=== PATIENT | female | born 1995 | race African-American/Black ===

== ENCOUNTER 2017-04-04 05:43 | Emergency (ER) | payer MEDICAID, OTHER ==
[~2017-04-04] VITALS: Ht 154.9 cm; Wt 100.0 kg
[~2017-04-04 05:43] MED LIST: ALBU6.7H INH; CETI10 PO; ZITHTAB PO
[2017-04-04 05:44] VITALS: BP 145/79; PULSE 104; RESP 16; TEMP 97.7; O2SAT 96
[2017-04-04] MEDS ORDERED: diphenhydrAMINE HCL 50 MG/ML VIAL IV PUSH ONE (06:30)
[2017-04-04] MEDS ORDERED: SODIUM CHLOR 0.9% 1000 ML INJ 1,000 ML IV ONE (06:30)
[2017-04-04] MEDS ORDERED: METOCLOPRAMIDE INJ 10 MG in SODIUM CHLORIDE 0.9% INJ 50 ML IV ONE (06:30)
--- NOTE | 2017-04-04 07:12 | PD ---
HPI Chief Complaint: Headache Time Seen by Provider: 06:21 Travel History International Travel<30 days: No Contact w/Intl Traveler<30days: No Traveled to known affect area: No History of Present Illness HPI 22yo F with no significant PMH who is 12 weeks presents to the ED with headache since 3pm yesterday. Pain is more from neck up to occiput. Associated with photophobia. Denies any fever, chest pain, sob, n/v, abdominal pain, vaginal bleeding or discharge, urinary complaints. PFSH Past Medical History Medical History: Denies Significant Hx Immunizations Current: Yes Tetanus Vaccination: > 5 Years Influenza Vaccination: No ?: Not LMP: CURRENTLY 12 WEEKS : 2 Para: 1 Past Surgical History Section: Yes Tonsillectomy: Yes Social History Alcohol Use: No Tobacco Use: No Substance Use: No Allergies-Medications (Allergen,Severity, Reaction): Coded Allergies: No Known Allergies (Verified Adverse Reaction, Unknown, 04/04/17) Reported Meds & Prescriptions Reported Meds & Active Scripts Active No Active Prescriptions or Reported Medications Review of Systems Except as stated in HPI: all other systems reviewed are Neg Physical Exam Narrative GENERAL: 22yo F in mild distress. SKIN: Focused skin assessment warm/dry. HEAD: Atraumatic. Normocephalic. EYES: Pupils equal and round at 4mm bilaterally. EOMI. ENT: No nasal bleeding or discharge. Mucous membranes pink and moist. NECK: Trachea midline. No JVD. CARDIOVASCULAR: Regular rate and rhythm. No murmur appreciated. RESPIRATORY: No accessory muscle use. Clear to auscultation. Breath sounds equal bilaterally. GASTROINTESTINAL: Abdomen soft, non-tender, nondistended. MUSCULOSKELETAL: No obvious deformities. No clubbing. No cyanosis. No edema. NEUROLOGICAL: Awake and alert. No obvious cranial nerve deficits. Motor grossly within normal limits. Normal speech. PSYCHIATRIC: Appropriate mood and affect; insight and judgment normal. Data Data Last Documented VS Vital Signs Date Time Temp Pulse Resp B/P (MAP) Pulse Ox O2 Delivery O2 Flow Rate FiO2 04/04/17 08:16 04/04/17 06:40 99 Room Air 04/04/17 05:44 97.7 104 16 Orders Orders Sodium Chlor 0.9% 1000 Ml Inj (Ns 1000 M (04/04/17 06:30) Metoclopramide Inj (Reglan Inj) (04/04/17 06:30) Diphenhydramine Inj (Benadryl Inj) (04/04/17 06:30) Ed Discharge Order (04/04/17 08:09) [facility] Medical Decision Making Medical Screen Exam Complete: Yes Emergency Medical Condition: Yes Differential Diagnosis Migraine headache vs. tension headache vs. cluster headache Narrative Course 22yo well appearing female here with headache since yesterday. No red flags. Pt given NS IVF, reglan, and diphenhydramine IV. Pt seen at the end of my shift. Will sign out to next team to reevaluate. Diagnosis Primary Impression: Headache Qualified Codes: R51 - Headache Scripts No Active Prescriptions or Reported Meds Carleen Otoole DO Apr 04, 2017 07:12
--- NOTE | 2017-04-04 08:09 | PD ---
Physical Exam Narrative Patient signed out to me by Dr. Otoole. Please see her documentation for complete details. Exam shows no neurologic abnormalities. Heart is RRR, Lungs CTA. Data Data Last Documented VS Vital Signs Date Time Temp Pulse Resp B/P (MAP) Pulse Ox O2 Delivery O2 Flow Rate FiO2 04/04/17 06:40 99 Room Air 04/04/17 05:44 97.7 104 16 145/79 (101) Orders Orders Sodium Chlor 0.9% 1000 Ml Inj (Ns 1000 M (04/04/17 06:30) Metoclopramide Inj (Reglan Inj) (04/04/17 06:30) Diphenhydramine Inj (Benadryl Inj) (04/04/17 06:30) MDM Supervised Visit with STEPHANIE: No Narrative Course Patient was given IVF, Reglan, Benadryl. She reports resolution of her symptoms. She is advised to drink plenty of fluids. Take Tylenol as needed for pain and Benadryl if needed. Advised to follow up with her doctor. Advised to return to the ED at any time for any worsening symptoms. Diagnosis Primary Impression: Headache Qualified Codes: R51 - Headache Patient Instructions: Acute Headache (ED), General Instructions Additional Instruction: Drink plenty of fluids. Take Tylenol as needed for pain. Follow up with your doctor. Return to the ED as needed for any worsening symptoms. Scripts No Active Prescriptions or Reported Meds Disposition: 01 DISCHARGE HOME Condition: Stable Marisel Wynn MD Apr 04, 2017 08:09
== END 2017-04-04 08:20 | disposition home or self-care (01) ==
LOC: NEPE 05:43
DX: O26.891 Other specified pregnancy related conditions, first trimester (principal); R51 Headache; Z3A.12 12 weeks gestation of pregnancy
CPT/HCPCS: 96365; 96375; 99284; J1200; J2765; J7030

== ENCOUNTER → 2017-05-13 | Outpatient (CLI) | payer MEDICAID | LOC: HPND 10:09 | PROVIDERS: ATTEND Obstetrics & Gynecology | DX: O28.3 Abnormal ultrasonic finding on antenatal screening of mother (principal); O99.212 Obesity complicating pregnancy, second trimester; E66.01 Morbid (severe) obesity due to excess calories; O28.5 Abnormal chromosomal and genetic finding on antenatal screening of mother; O35.1XX0 Maternal care for (suspected) chromosomal abnormality in fetus, not applicable or unspecified; Z68.41 Body mass index [BMI] 40.0-44.9, adult | CPT/HCPCS: 76811 ==

== ENCOUNTER → 2017-06-10 | Outpatient (CLI) | payer MEDICAID ==
--- NOTE | 2017-06-10 16:46 | EKG ---
Date Performed: 06/10/2017 Time Performed: 10:04:38 PTAGE: 22 years EKG: Sinus rhythm . Normal ECG NO PREVIOUS TRACING DOCTOR: Tiffanie Nj Interpretating Date/Time 06/10/2017 16:43:53
== END ==
LOC: HCAV 09:56
PROVIDERS: ATTEND Obstetrics & Gynecology
DX: O99.212 Obesity complicating pregnancy, second trimester (principal)
CPT/HCPCS: 93005

== ENCOUNTER → 2017-06-18 | Outpatient (CLI) | payer MEDICAID | LOC: HPND 09:26 | PROVIDERS: ATTEND Obstetrics & Gynecology | DX: O99.212 Obesity complicating pregnancy, second trimester (principal); E66.01 Morbid (severe) obesity due to excess calories; Z68.41 Body mass index [BMI] 40.0-44.9, adult; O28.5 Abnormal chromosomal and genetic finding on antenatal screening of mother; O35.1XX0 Maternal care for (suspected) chromosomal abnormality in fetus, not applicable or unspecified | CPT/HCPCS: 76816 ==

== ENCOUNTER → 2017-07-16 | Outpatient (CLI) | payer MEDICAID | LOC: HPND 09:36 | PROVIDERS: ATTEND Obstetrics & Gynecology | DX: O99.212 Obesity complicating pregnancy, second trimester (principal); E66.01 Morbid (severe) obesity due to excess calories; Z68.41 Body mass index [BMI] 40.0-44.9, adult; O35.1XX0 Maternal care for (suspected) chromosomal abnormality in fetus, not applicable or unspecified; O28.5 Abnormal chromosomal and genetic finding on antenatal screening of mother | CPT/HCPCS: 76816 ==

== ENCOUNTER → 2017-08-13 | Outpatient (CLI) | payer MEDICAID | LOC: HPND 09:42 | PROVIDERS: ATTEND Obstetrics & Gynecology | DX: O28.5 Abnormal chromosomal and genetic finding on antenatal screening of mother (principal); O99.213 Obesity complicating pregnancy, third trimester; E66.01 Morbid (severe) obesity due to excess calories; Z68.41 Body mass index [BMI] 40.0-44.9, adult | CPT/HCPCS: 76816 ==

== ENCOUNTER 2017-10-06 11:20 | Inpatient (IN) ==
[2017-10-06] MEDS ORDERED: Lidocaine 2%/Epinephrine 1:200,000 PF Inj 20 ML Vial INFILTRATN ONE (12:00)
[2017-10-06] MEDS ORDERED: Phenylephrine/NS 1000 MCG/10ML Syringe IV.PUSH ONE (12:00)
[2017-10-06] MEDS ORDERED: Citric Acid/Sodium Citrate Liq 30 ML UDC PO SCH (12:15)
[2017-10-06 12:39] LABS: Baso # (Auto) 0.1 th/mm3 (0.0-0.2); Baso % (Auto) 0.5 % (0.0-2.0); Eos # (Auto) 0.1 th/mm3 (0.0-0.4); Eos % (Auto) 0.8 % (0.0-4.0); Hematocrit 34.1 % (35.0-46.0); Hemoglobin 11.5 gm/dL (11.6-15.3); Lymph # (Auto) 1.7 th/mm3 (1.0-4.8); Lymph % (Auto) 18.1 % (9.0-44.0); Mean Corpuscular HGB Conc 33.7 % (32.0-36.0); Mean Corpuscular Volume 80.4 fL (80.0-100.0); Mono # (Auto) 0.3 th/mm3 (0.0-0.9); Mono % (Auto) 3.7 % (0.0-8.0); Neut # (Auto) 7.2 th/mm3 (1.8-7.7); Neut % (Auto) 76.9 % (16.0-70.0); Platelet Count 283 th/mm3 (150-450); Red Blood Count 4.24 mil/mm3 (4.00-5.30); Red Cell Distribution Width 15.8 % (11.6-17.2); White Blood Count 9.4 th/mm3 (4.0-11.0)
--- NOTE | 2017-10-06 12:52 | P.HP ---
History of Present Illness Primary Care Physician: UNKNOWN Chief Complaint: 38 weeks, oligohydramnios History of Present Illness: pt is 38 3/7 days she was seen today at [facility] 3 previous c section gbs negative pt to be admitted for repeat c setion - Diagnosis (1) Previous section (2) Oligohydramnios (3) 38 weeks gestation of (4) Obesities, morbid Inpatient Certification: I certify that the inpatient services were ordered in accordance with Medicare regulations governing the order. This includes certification that hospital inpatient services are reasonable and necessary and in the case of services not specified as inpatient-only under 42 CFR 419.22(n), that they are appropriately provided as inpatient services in accordance to with the 2-midnight benchmark under 43 CFR 412.3(e) Estimated Total Length of Stay (Days): 3 Plans for Post Hospital Care: Home Review of Systems All other systems reviewed negative except as stated in HPI PMFSH - History History Provided By: Medical Record - Medical / Surgical Hx Neg / Unobtainable Surgical History: No Previous Surgery - Surgical History Surgical History: Surgical History (Last Updated 10/06/17 @ 12:52 by MADELEINE Cummins) Previous section - Family History Family History: Family History (Last Updated 10/06/17 @ 12:44 by MADELEINE Cummins) Grandparent Breast cancer Grandparent Hypertension Mother Hypertension - Tobacco History Smoking Status: Never smoker - Alcohol History How Often Do You Have a Drink Containing Alcohol: Never - Substance Use History Substance History: Past History - Travel History History of Recent Travel: No Recent Travel in the [place] Within the Last 8 Weeks: No Recent Travel Out of the Country Within the Last 8 Weeks: No Medications and Allergies Active Medications: Active Medications Citric Acid/Sodium Citrate (Sodium Citrate/Citric Acid Liq) 30 ml PO STUDIO TECHNICIAN BLAIR Stop: 10/10/17 12:14 Cefazolin Sodium 2,000 mg/ (Sodium Chloride) 100 mls @ 200 mls/hr IV.SIG STUDIO TECHNICIAN BLAIR Stop: 10/10/17 12:59 Lactated Ringer's (Lr 1000 Ml Inj) 1,000 mls @ 2,000 mls/hr IV.SIG .Q30M ONE Stop: 10/06/17 12:36 Lactated Ringer's (Lr 1000 Ml Inj) 1,000 mls @ 150 mls/hr IV.CONT .Q6H40M BLAIR Allergies Allergy/AdvReac Type Severity Reaction Status Date / Time No Known Allergies AdvReac Unknown Uncoded 04/04/17 05:48 Exam Vital signs: Vital Signs 10/06/17 11:46 Temperature 98.6 F Pulse Rate 101 H Respiratory Rate 16 Blood Pressure 113/78 - Constitutional no acute distress - Routine HEENT Exam Head: Present: normocephalic ENT: Present: mucous membranes moist - Routine Respiratory Exam Present: CTA bilaterally - Routine Cardiovascular Exam Present: RRR - Detailed Abdominal Exam Comments: gravid - Routine Neurological Exam Present: alert, oriented X3 Results - Labs CBC & Chem 7: 10/06/17 11:55 Caprini VTE Risk Assessment Caprini VTE Risk Assessment: No/Low Risk (score <= 1) Caprini Risk Assessment Model: Point Value = 1 Point Value = 2 Point Value = 3 Point Value = 5 Age 41-60 Minor surgery BMI > 25 kg/m2 Swollen legs Varicose veins or History of unexplained or recurrent spontaneous Oral contraceptives or hormone replacement Sepsis (< 1 month) Serious lung disease, including pneumonia (< 1 month) Abnormal pulmonary function Acute myocardial infarction Congestive heart failure (< 1 month) History of inflammatory bowel disease Medical patient at bed rest Age 61-74 Arthroscopic surgery Major open surgery (> 45 min) Laparoscopic surgery (> 45 min) Malignancy Confined to bed (> 72 hours) Immobilizing plaster cast Central venous access Age >= 75 History of VTE Family history of VTE Factor V Leiden Prothrombin [id number] Lupus anticoagulant Anticardiolipin antibodies Elevated serum homocysteine Heparin-induced thrombocytopenia Other congenital or acquired thrombophilia Stroke (< 1 month) Elective arthroplasty Hip, pelvis, or leg fracture Acute spinal cord injury (< 1 month) Prophylaxis Regimen: Total Risk Factor Score Risk Level Prophylaxis Regimen 0-1 Low Early ambulation 2 Moderate Order ONE of the following: *Sequential Compression Device (SCD) *Heparin 5000 units SQ BID 3-4 Higher Order ONE of the following medications: *Heparin 5000 units SQ TID *Enoxaparin/Lovenox 40 mg SQ daily (WT < 150 kg, CrCl > 30 mL/min) *Enoxaparin/Lovenox 30 mg SQ daily (WT < 150 kg, CrCl > 10-29 mL/min) *Enoxaparin/Lovenox 30 mg SQ BID (WT < 150 kg, CrCl > 30 mL/min) AND/OR *Sequential Compression Device (SCD) 5 or more Highest Order ONE of the following medications: *Heparin 5000 units SQ TID (Preferred with Epidurals) *Enoxaparin/Lovenox 40 mg SQ daily (WT < 150 kg, CrCl > 30 mL/min) *Enoxaparin/Lovenox 30 mg SQ daily (WT < 150 kg, CrCl > 10-29 mL/min) *Enoxaparin/Lovenox 30 mg SQ BID (WT < 150 kg, CrCl > 30 mL/min) AND *Sequential Compression Device (SCD) Assessment and Plan - Assessment (1) Previous section Code(s): Z98.891 - History of uterine scar from previous surgery Status: Acute (2) Oligohydramnios Code(s): O41.00X0 - Oligohydramnios, unspecified trimester, not applicable or unspecified Status: Acute (3) 38 weeks gestation of Code(s): Z3A.38 - 38 weeks gestation of Status: Acute (4) Obesities, morbid Code(s): E66.01 - Morbid (severe) obesity due to excess calories Status: Chronic - Plan repeat c section routine post op care Code Status: full code Discussed Condition With: patient Discharge Plannin-3 days (2) Oligohydramnios Qualifiers: Fetus number: single or unspecified fetus Trimester: third trimester Qualified Code(s): O41.03X0 - Oligohydramnios, third trimester, not applicable or unspecified
[2017-10-06] MEDS ORDERED: ceFAZolin Inj 2,000 MG in Sodium Chlor 0.9% Inj 80 ML IV.SIG SCH (13:00)
[2017-10-06 13:33] LABS: Bilirubin,Urine Negative (Negative); Clarity,Urine Clear (Clear); Color,Urine Yellow (Yellw/Straw); Glucose,Urine (UA) Negative (Negative); Leukocyte Esterase,Urine Negative (Negative); Nitrite,Urine Negative (Negative); PH,Urine 6.5 (5.0-8.5)
[2017-10-06 13:49] LABS: Bacteria,Urine Occasional /hpf; Mucus,Urine Few /lpf (Occasional); Squamous Epithelial Cell,Urine 6 /hpf (0-5)
[2017-10-06 13:51] LABS: Specific Gravity,Urine 1.024 (1.002-1.035)
[2017-10-06] MEDS ORDERED: Morphine Sulfate PF Inj 5 MG/10 ML Ampul ONE (15:47)
[2017-10-06] MEDS ORDERED: Zolpidem Tartrate 5 MG Tablet PO PRN (18:29)
[2017-10-06] MEDS ORDERED: Oxytocin 30 Units/500ml Premix 30 UNITS/500 ML BAG IV.SIG ONE (18:29)
--- NOTE | 2017-10-06 19:09 | MP ---
cc: Siddhartha Alvarado MD, R John MD DATE OF OPERATION: 10/06/2017 PREOPERATIVE DIAGNOSES: 1. Intrauterine at term. 2. Oligohydramnios. 3. Previous section. POSTOPERATIVE DIAGNOSES: 1. Intrauterine at term oligohydramnios. 2. Oligohydramnios. 3. Previous section. 4. Pelvic adhesions. PROCEDURE PERFORMED: Repeat low transverse section, excision of old scar and massive lysis of adhesions of the uterus on the right side. ANESTHESIA: Spinal. SURGEON: Siddhartha Alvarado MD FINDINGS: The patient had a normal uterus with massive adhesions to the pelvic sidewall on the right side. I had to take these down before we could get in to get the . There was a normal male , Apgars 8 and 9, weight 6 pounds 7 ounces, normal placenta, normal tubes, normal ovaries. COMPLICATIONS: Massive lysis of adhesions. COUNTS: Correct. ESTIMATED BLOOD LOSS: 600 mL FLUIDS: Crystalloids. CONDITION: The patient tolerated the procedure well, went to the recovery room in good condition. PROCEDURE IN DETAIL: The patient was taken to the operating room and identified by name, date of , and given a general anesthetic, prepped and draped in the usual sterile fashion for a repeat section. The pannus was held up by a special device and then she was prepped with ChloraPrep. Once this had been accomplished, a timeout was taken and the old incision was excised completely and this incision was then taken down to the fascia. The fascia was taken off the rectus muscle by blunt and sharp dissection and the rectus muscles were firmly adhesed to each other from previous surgery. We opened this up and the peritoneum was entered under direct vision without difficulty. The bladder flap was attempted to be placed, but there was a lot of adhesions of the lower uterine segment to the pelvic side wall and this needed to be released first. Using a Fierro retractor, we took these down with electrocautery, just enough to get into the uterine cavity. A bladder flap was then created taking the peritoneum down over the lower uterine segment and the lower uterine segment was incised sharply. She was not in labor and the cervix was fingertip and long, so the lower uterine segment was quite thick. We entered the uterine cavity without difficulty. There was clear fluid noted, very little clear fluid, and the surgeon extended the incision manually. The vertex was grasped and ,with fundal pressure, we could not deliver the baby. Therefore, we used the Kiwi and, with gentle fundal pressure and pulling on the Kiwi, the vertex delivered without difficulty. The hypopharynx and nasopharynx were suctioned gently and the remainder of the infant was delivered and the cord was clamped and cut after 45 seconds. The placenta was delivered manually and handed off the field and the uterus was curettaged twice with wet laps. At this time, we put 1 row of 0 Vicryl suture in to close the incision. There was still quite a bit of scar tissue on that right side. We took this down. There was a bit of oozing from this entire area. We slowed the bleeding with 3-0 Vicryl interrupted on the major bleeder and held pressure while we put a second row of sutures in the uterine incision to imbricate the first row of sutures. At this point, we used the Bovie and put a few more stitches and then we cleaned the cul-de-sac and gutters of blood and debris and irrigated. We put some Dee on that raw surface, because it was still oozing and then we put a piece of Intercede over that. The rectus muscles were reapproximated with 0 Vicryl in a running fashion. Fascia was repaired from lateral to midline with a running 0 Vicryl. Subcu was closed with 3-0 Vicryl. Skin was repaired with a 3-0 Monocryl in a running subcuticular fashion. The wound was sterilely dressed. We put a pressure dressing on. R. MD AUGUSTUS Blanco/ , 06:42 PM , 07:08 PM
[2017-10-06] MEDS ORDERED: Naloxone Inj 0.4 MG/ML Vial IV.PUSH PRN (20:02)
[2017-10-06] MEDS ORDERED: Oxytocin 30 Units/500ml Premix 30 UNITS/500 ML BAG IV.SIG PRN (23:29)
[2017-10-07] MEDS: ceFAZolin Inj 2,000 MG in Sodium Chlor 0.9% Inj 80 ML IV.SIG SCH ×2 (01:26→11:31)
[2017-10-07 02:00] LABS: Amphetamine Screen,Urine Neg (Neg); Barbiturate Screen,Urine Neg (Neg); Cannabinoid Screen,Urine Neg (Neg); Cocaine Screen,Urine Neg (Neg); Opiate Screen,Urine Neg (Neg)
[2017-10-07 05:55] LABS: Baso % (Auto) 0.2 % (0.0-2.0); Hematocrit 30.8 % (35.0-46.0); Hemoglobin 10.2 gm/dL (11.6-15.3); Lymph # (Auto) 1.5 th/mm3 (1.0-4.8); Lymph % (Auto) 8.8 % (9.0-44.0); Mean Corpuscular HGB Conc 33.1 % (32.0-36.0); Mean Corpuscular Hemoglobin 27.1 pg (27.0-34.0); Mean Corpuscular Volume 81.7 fL (80.0-100.0); Mean Platelet Volume 7.9 fL (7.0-11.0); Mono # (Auto) 0.5 th/mm3 (0.0-0.9); Mono % (Auto) 2.8 % (0.0-8.0); Neut # (Auto) 14.9 th/mm3 (1.8-7.7); Neut % (Auto) 88.2 % (16.0-70.0); Platelet Count 236 th/mm3 (150-450); Red Blood Count 3.77 mil/mm3 (4.00-5.30); Red Cell Distribution Width 15.5 % (11.6-17.2); White Blood Count 16.9 th/mm3 (4.0-11.0)
[2017-10-07] MEDS ORDERED: PNV IRON FOLIC ACID OMEGA3 PO SCH (09:00)
[2017-10-07] MEDS: Ibuprofen 600 MG Tablet PO PRN ×2 (11:26→21:28)
--- NOTE | 2017-10-07 12:39 | P.PNOB ---
Subjective Post op day: 1 Interval history: Doing well, pain is controlled and bleeding is normal. Baby is doing well. Baby needs circ. Objective Vital Signs/I&O: Vital Signs 10/06/17 15:47 10/06/17 15:48 10/06/17 18:35 Temperature 98.4 F 97.7 F Pulse Rate 99 H 74 Respiratory Rate 18 16 Blood Pressure 134/74 99/58 L 10/06/17 18:45 10/06/17 18:56 10/06/17 19:01 Temperature Pulse Rate 89 Respiratory Rate 18 Blood Pressure 126/73 108/58 L 10/06/17 19:12 10/06/17 19:16 10/06/17 19:31 Temperature 97.5 F L Pulse Rate 89 84 Respiratory Rate 20 18 Blood Pressure 108/64 10/06/17 19:32 10/06/17 19:50 10/06/17 23:57 Temperature 97.6 F 98.4 F Pulse Rate 73 76 Respiratory Rate 18 17 Blood Pressure 123/61 105/55 L 106/54 L 10/07/17 04:00 10/07/17 08:00 Temperature 98.2 F 97.9 F Pulse Rate 81 99 H Respiratory Rate 18 16 Blood Pressure 109/54 L 114/61 Intake & Output 10/06/17 10/07/17 10/07/17 18:59 06:59 18:59 Intake Total 100 / 100 Balance 100 / 100 Weight 117.934 kg Intake: IV 100 / 100 Ancef Inj 2,000 MG In NS Inj 80 100 / 100 ML @ 200 mls/hr IV.SIG Q8H [facility] Rx#:[id number] Other: Weight On Admission 117.934 kg Result Diagrams: 10/07/17 05:26 Objective Remarks: GENERAL: Well-nourished, well-developed patient. CARDIOVASCULAR: Regular rate and rhythm without murmurs, gallops, or rubs. RESPIRATORY: Breath sounds equal bilaterally. No accessory muscle use. ABDOMEN/GI: Abdomen soft, non-tender, bowel sounds present. Incision: Clean, dry and intact. Fundus: Firm, non-tender at umbilicus. GENITOURINARY: Light to moderate bleeding. EXTREMITIES: No cyanosis or edema, non-tender, without signs of DVT. Medications and IVs: Active Medications Diphenhydramine HCl (Benadryl) 50 mg PO Q6H PRN PRN Reason: MILD TO MODERATE ITCHING Stop: 10/07/17 20:01 Diphenhydramine HCl (Benadryl Inj) 25 mg IV.PUSH Q6H PRN PRN Reason: MILD TO MODERATE ITCHING Stop: 10/07/17 20:01 Diphtheria/Pertussis/Tetanus Vacc (Boostrix Vaccine Inj) 0.5 ml IM .ONCE ONE Stop: 10/07/17 16:01 Lactated Ringer's (Lr 1000 Ml Inj) 1,000 mls @ 100 mls/hr IV.CONT .Q10H BLAIR Stop: 10/07/17 19:28 Oxytocin (Pitocin 30 Units/Ns 500 Ml Premix) 30 units in 500 mls @ 100 mls/hr IV.SIG PRN PRN PRN Reason: Heavy bleeding Stop: 10/07/17 23:28 Ibuprofen (Motrin) 600 mg PO Q6HR PRN PRN Reason: cramping Last Admin: 10/07/17 11:26 Dose: 600 mg Measles/Mumps/Rubella Vaccine Live (M-M-R Ii Vaccine Inj) 0.5 ml SQ .ONCE ONE Stop: 10/07/17 16:01 Miscellaneous Information ([facility]) 1 each OTHER UNSCH PRN PRN Reason: SEE LABEL COMMENTS Stop: 10/07/17 20:01 Miscellaneous Information ([facility]) 1 each OTHER UNSCH PRN PRN Reason: SEE LABEL COMMENTS Stop: 10/07/17 20:01 Naloxone HCl (Narcan Inj) 0.4 mg IV.PUSH UNSCH PRN PRN Reason: SEE LABEL COMMENTS Stop: 10/07/17 20:01 Ondansetron HCl (Zofran Odt) 4 mg PO Q6H PRN PRN Reason: NAUSEA OR VOMITING Oxycodone/Acetaminophen (Percocet 5/325 Mg) 1 tab PO Q4H PRN PRN Reason: PAIN SCALE 3 TO 5 Oxycodone/Acetaminophen (Percocet 5/325 Mg) 2 tab PO Q4H PRN PRN Reason: PAIN SCALE 6 TO 10 Pnv #[id number] (Acid-Omega3) 1 each PO DAILY BLAIR Senna/Docusate Sodium ([place]-Colace) 2 tab PO Q12H PRN PRN Reason: CONSTIPATION Sodium Chloride (Ns Flush) 2 ml IV.FLUSH BID BLAIR Sodium Chloride (Ns Flush) 2 ml IV.FLUSH PRN PRN PRN Reason: FLUSH AFTER USING IV ACCESS Zolpidem Tartrate (Ambien) 5 mg PO HS PRN PRN Reason: INSOMNIA Assessment and Plan - Diagnosis (1) Previous section Code(s): Z98.891 - History of uterine scar from previous surgery Status: Acute (2) Oligohydramnios Code(s): O41.00X0 - Oligohydramnios, unspecified trimester, not applicable or unspecified Status: Acute (3) 38 weeks gestation of Code(s): Z3A.38 - 38 weeks gestation of Status: Acute (4) Obesities, morbid Code(s): E66.01 - Morbid (severe) obesity due to excess calories Status: Chronic - Plan POD #1 Doing well. Routine care Circ for the baby. (2) Oligohydramnios Qualifiers: Fetus number: single or unspecified fetus Trimester: third trimester Qualified Code(s): O41.03X0 - Oligohydramnios, third trimester, not applicable or unspecified
[2017-10-07] MEDS ORDERED: Diphtheria/Tetanus/Pertussis Vaccine Inj 0.5 ML Syringe IM ONE (16:00)
[2017-10-07] MEDS ORDERED: Measles/Mumps/Rubella Vaccine Inj 0.5 ML Vial SQ ONE (16:00)
[2017-10-07 20:34] VITALS: RESP 18
[2017-10-08] MEDS: Ibuprofen 600 MG Tablet PO PRN ×3 (06:11→22:37)
--- NOTE | 2017-10-08 08:58 | P.PNOB ---
Subjective Post op day: 2 Objective Vital Signs/I&O: Vital Signs 10/07/17 20:00 10/08/17 08:00 Temperature 98.6 F 98.4 F Pulse Rate 96 H 97 H Respiratory Rate 18 18 Blood Pressure 112/68 127/77 Result Diagrams: 10/07/17 05:26 Objective Remarks: GENERAL: Well-nourished, well-developed patient. CARDIOVASCULAR: Regular rate and rhythm without murmurs, gallops, or rubs. RESPIRATORY: Breath sounds equal bilaterally. No accessory muscle use. ABDOMEN/GI: Abdomen soft, non-tender, bowel sounds present. Incision: Clean, dry and intact. Fundus: Firm, non-tender at umbilicus. GENITOURINARY: Light to moderate bleeding. EXTREMITIES: No cyanosis or edema, non-tender, without signs of DVT. Medications and IVs: Active Medications Ibuprofen (Motrin) 600 mg PO Q6HR PRN PRN Reason: cramping Last Admin: 10/08/17 06:11 Dose: 600 mg Ondansetron HCl (Zofran Odt) 4 mg PO Q6H PRN PRN Reason: NAUSEA OR VOMITING Oxycodone/Acetaminophen (Percocet 5/325 Mg) 1 tab PO Q4H PRN PRN Reason: PAIN SCALE 3 TO 5 Oxycodone/Acetaminophen (Percocet 5/325 Mg) 2 tab PO Q4H PRN PRN Reason: PAIN SCALE 6 TO 10 Pnv #[id number] (Acid-Omega3) 1 each PO DAILY [facility] Senna/Docusate Sodium ([place]-Colace) 2 tab PO Q12H PRN PRN Reason: CONSTIPATION Sodium Chloride (Ns Flush) 2 ml IV.FLUSH BID [facility] Last Admin: 10/07/17 21:20 Dose: Not Given Sodium Chloride (Ns Flush) 2 ml IV.FLUSH PRN PRN PRN Reason: FLUSH AFTER USING IV ACCESS Zolpidem Tartrate (Ambien) 5 mg PO HS PRN PRN Reason: INSOMNIA Assessment and Plan - Diagnosis (1) Previous section Code(s): Z98.891 - History of uterine scar from previous surgery Status: Acute Plan: routine post op care (2) Oligohydramnios Code(s): O41.00X0 - Oligohydramnios, unspecified trimester, not applicable or unspecified Status: Resolved (3) 38 weeks gestation of Code(s): Z3A.38 - 38 weeks gestation of Status: Acute (4) Obesities, morbid Code(s): E66.01 - Morbid (severe) obesity due to excess calories Status: Chronic - Plan pt doing well. pain well managed with oral pain medication bonding with Routine care Circ for the baby today Discharge Planning: dc home tomorrow (2) Oligohydramnios Qualifiers: Fetus number: single or unspecified fetus Trimester: third trimester Qualified Code(s): O41.03X0 - Oligohydramnios, third trimester, not applicable or unspecified
[2017-10-08] MEDS: Senna/Docusate Sodium 8.6/50 MG Tablet PO PRN (14:51)
[2017-10-09 08:08] VITALS: BP 136/81; PULSE 103
[2017-10-09 08:09] VITALS: TEMP 98.2
--- NOTE | 2017-10-09 09:32 | P.PNOB ---
Subjective Post op day: 2 Objective Vital Signs/I&O: Vital Signs 10/08/17 20:00 10/09/17 08:00 Temperature 98.3 F 98.2 F Pulse Rate 102 H 103 H Respiratory Rate 18 18 Blood Pressure 147/81 H 136/81 Result Diagrams: 10/07/17 05:26 Objective Remarks: GENERAL: Well-nourished, well-developed patient. CARDIOVASCULAR: Regular rate and rhythm without murmurs, gallops, or rubs. RESPIRATORY: Breath sounds equal bilaterally. No accessory muscle use. ABDOMEN/GI: Abdomen soft, non-tender, bowel sounds present. Incision: Clean, dry and intact. Fundus: Firm, non-tender at umbilicus. GENITOURINARY: Light to moderate bleeding. EXTREMITIES: No cyanosis or edema, non-tender, without signs of DVT. Medications and IVs: Active Medications Ibuprofen (Motrin) 600 mg PO Q6HR PRN PRN Reason: cramping Last Admin: 10/08/17 22:37 Dose: 600 mg Ondansetron HCl (Zofran Odt) 4 mg PO Q6H PRN PRN Reason: NAUSEA OR VOMITING Oxycodone/Acetaminophen (Percocet 5/325 Mg) 1 tab PO Q4H PRN PRN Reason: PAIN SCALE 3 TO 5 Oxycodone/Acetaminophen (Percocet 5/325 Mg) 2 tab PO Q4H PRN PRN Reason: PAIN SCALE 6 TO 10 Pnv #[id number] (Acid-Omega3) 1 each PO DAILY BLAIR Senna/Docusate Sodium ([place]-Colace) 2 tab PO Q12H PRN PRN Reason: CONSTIPATION Last Admin: 10/08/17 14:51 Dose: 2 tab Sodium Chloride (Ns Flush) 2 ml IV.FLUSH BID BLAIR Last Admin: 10/07/17 21:20 Dose: Not Given Sodium Chloride (Ns Flush) 2 ml IV.FLUSH PRN PRN PRN Reason: FLUSH AFTER USING IV ACCESS Zolpidem Tartrate (Ambien) 5 mg PO HS PRN PRN Reason: INSOMNIA Assessment and Plan - Diagnosis (1) Previous section Code(s): Z98.891 - History of uterine scar from previous surgery Status: Acute Plan: routine post op care (2) Oligohydramnios Code(s): O41.00X0 - Oligohydramnios, unspecified trimester, not applicable or unspecified Status: Resolved (3) 38 weeks gestation of Code(s): Z3A.38 - 38 weeks gestation of Status: Acute (4) Obesities, morbid Code(s): E66.01 - Morbid (severe) obesity due to excess calories Status: Chronic - Plan pt doing well. pain well managed with oral pain medication Routine care Discharge Planning: dc home today (2) Oligohydramnios Qualifiers: Fetus number: single or unspecified fetus Trimester: third trimester Qualified Code(s): O41.03X0 - Oligohydramnios, third trimester, not applicable or unspecified
--- NOTE | 2017-10-09 10:53 | P.DS ---
Date of admission: 10/06/17 11:20 Primary care physician: UNKNOWN Attending physician on discharge: Oleg Alvarado Anticipated date of discharge: 10/09/17 Brief History from admission: pt is 38 3/7 days she was seen today at [facility] 3 previous c section gbs negative pt to be admitted for repeat c setion DS: Diagnosis - Discharge Diagnosis (1) Previous section Status: Acute (2) Oligohydramnios Status: Resolved (3) 38 weeks gestation of Status: Acute (4) Obesities, morbid Status: Chronic DS: Medications - Discharge Medications Prescriptions: ibuprofen 600 mg PO Q6HR PRN #30 tab PRN Reason: cramping oxycodone-acetaminophen 1 tab PO Q4H PRN #14 tab PRN Reason: Pain Scale 3 To 5 DS: Summary Hospital Course: repeat c section routine post op care - Time Spent with Patient Total time spent providing and/or coordinating discharge services: Exam Vital signs: Vital Signs 10/08/17 20:00 10/09/17 08:00 Temperature 98.3 F 98.2 F Pulse Rate 102 H 103 H Respiratory Rate 18 18 Blood Pressure 147/81 H 136/81 Narrative: see post note Results Procedures completed during hospitalization: repeat c section Discharge Plan - Discharge Disposition Patient Disposition: 01 Discharge Home - Discharge Condition Condition: Good - Discharge Order Discharge Orders: Discharge Order (Routine); Ordered 10/08/17 Ordered By: Vannessa Chapman [employer] Clear for Discharge (Routine); Ordered 10/09/17 Ordered By: Vannessa Chapman - Discharge Details Anticipated Discharge Date: 10/09/17 - Physicians Team Primary Care Provider: UNKNOWN, Attending Provider: Oleg Alvarado - Rxs /Orders / Referrals /Forms Prescriptions: New ibuprofen 600 mg Tablet 600 mg PO Q6HR PRN (Reason: cramping) Qty: 30 RF: 0 oxycodone-acetaminophen 5-325 mg Tablet 1 tab PO Q4H PRN (Reason: Pain Scale 3 To 5) Qty: 14 RF: 0 Continue PNV #[id number] 30 mg iron-10 mg iron-1 mg Capsule 1 tab PO DAILY Referrals: Oleg Alvarado MD [Physician] - See Instructions (schedule an appt for 1 week) UNKNOWN, [Primary Care Provider] - See Instructions - Discharge Instructions Patient Printed Instructions: Preeclampsia and Eclampsia After Delivery (GEN), (DC) - Post Discharge Care Plan Care Plan Goals: Your Health Problems: Goals to Promote Your Health: * To prevent worsening of your condition * To maintain your health at the optimal level Directions to Meet Your Goals: * Take your medications as prescribed * Follow your dietary instruction * Follow activity as directed * Keep your appointments as scheduled * Take your immunizations and boosters as scheduled * If your symptoms worsen call your PCP * If no PCP go to Urgent Care or Emergency Room Smoking is dangerous to your health. Avoid second hand smoke. You may reach the 24-hour crisis hotline for domestic abuse at .
[2017-10-09] MEDS: Ibuprofen 600 MG Tablet PO PRN (11:28)
[2017-10-09] MEDS: Senna/Docusate Sodium 8.6/50 MG Tablet PO PRN (11:28)
== END 2017-10-09 12:45 | disposition home or self-care (01) ==
LOC: H2E 11:20 → H1EA 19:38
PROVIDERS: ADMIT Obstetrics & Gynecology; ATTEND Obstetrics & Gynecology